=== PATIENT | male | born 1950 | race Caucasian/White ===

== ENCOUNTER 2020-03-07 01:41 | Emergency (ER) | payer OTHER ==
[~2020-03-07] VITALS: Ht 185.4 cm; Wt 102.5 kg
[2020-03-07] MEDS ORDERED: ASA81 MG (01:53)
[2020-03-07] MEDS ORDERED: GLYCOTROL CAPS1 EACH (01:54)
== END 2020-03-07 05:32 | disposition home or self-care (01) ==
LOC: ER 01:41
DX: L03.115 Cellulitis of right lower limb (principal); A46 Erysipelas

== ENCOUNTER 2020-03-10 09:02 | Outpatient (CLI) | payer OTHER ==
[~2020-03-10 09:02] MED LIST: ASA81 MG; GLYCOTROL CAPS1 EACH
== END 2020-03-10 10:00 | disposition home or self-care (01) ==
LOC: WOUND MED 09:02
PROVIDERS: ATTEND Specialist
DX: I87.311 Chronic venous hypertension (idiopathic) with ulcer of right lower extremity (principal); L97.322 Non-pressure chronic ulcer of left ankle with fat layer exposed
CPT/HCPCS: 11042; 11045; G0463; A4554; A4930; A6216; A6219; A6220; A6266

== ENCOUNTER 2020-03-13 13:21 | Emergency (ER) | payer OTHER ==
[~2020-03-13] VITALS: Ht 182.9 cm; Wt 102.1 kg
[2020-03-13] MEDS ORDERED: CRESTOR10 MG (13:34)
[2020-03-13] MEDS ORDERED: MAGNESIUM250 MG (13:35)
== END 2020-03-13 15:53 | disposition home or self-care (01) ==
LOC: ER 13:21
DX: L03.115 Cellulitis of right lower limb (principal)

== ENCOUNTER 2020-03-17 07:36 | Outpatient (CLI) | payer OTHER ==
[~2020-03-17 07:36] MED LIST changes: +CRESTOR10 MG; +MAGNESIUM250 MG
== END 2020-03-17 09:00 | disposition home or self-care (01) ==
LOC: WOUND MED 07:36
PROVIDERS: ATTEND Specialist
DX: I87.311 Chronic venous hypertension (idiopathic) with ulcer of right lower extremity (principal); L97.322 Non-pressure chronic ulcer of left ankle with fat layer exposed
CPT/HCPCS: 11042; A4554; A4930; A6216; A6266

== ENCOUNTER 2020-03-24 07:27 | Outpatient (CLI) | payer OTHER | END 2020-03-24 09:44 | disposition home or self-care (01) | LOC: WOUND MED 07:27 | PROVIDERS: ATTEND Specialist | DX: I87.311 Chronic venous hypertension (idiopathic) with ulcer of right lower extremity (principal); L97.322 Non-pressure chronic ulcer of left ankle with fat layer exposed | CPT/HCPCS: G0463; A4554; A4930; A6216 ==